=== PATIENT | female | born 1955 | race Caucasian/White ===

== ENCOUNTER 2017-02-04 03:24 | Inpatient (IN) | payer SELFPAY ==
[2017-02-04] VITALS (8 sets, daily range): BP systolic 84–144; BP diastolic 51–74
[~2017-02-04] VITALS: Ht 167.6 cm; Wt 71.8 kg
[2017-02-04] MEDS ORDERED: FUROSEMIDE 40MG/4ML VIAL IVP ONE (03:45)
[2017-02-04 03:59] LABS: BASOPHILS % 0.4 % (0.0-2.0); EOSINOPHILS % 2.3 % (0.0-5.0); HEMATOCRIT. 37.6 % (36.0-48.0); HEMOGLOBIN. 12.2 g/dL (12.0-16.0); LYMPHOCYTES % 32.6 % (20.0-50.0); MEAN CORPUSCULAR HEMOGLOBIN 30.2 pg (28.0-32.0); MEAN CORPUSCULAR VOLUME 93.1 fL (81.0-99.0); MEAN PLATELET VOLUME 10.2 fl (7.4-10.4); MONOCYTES % 4.4 % (2.0-8.0); NEUTROPHILS % 60.3 % (40.0-76.0); PLATELET 280 x1000/uL (130-400); RED BLOOD CELL COUNT 4.04 mill/uL (4.2-5.4); RED CELL DISTRIBUTION WIDTH 14.4 % (11.6-14.6)
[2017-02-04 04:03] LABS: PARTIAL THROMBOPLASTIN TIME 24.1 sec (23.4-31.0); PROTHROMBIN TIME 10.5 sec (9.4-11.6)
[2017-02-04 04:11] LABS: CARBON DIOXIDE 20 mEq/L (21-32); CHLORIDE 98 mEq/L (98-107); TROPONIN I 0.04 ng/mL (0.00-0.04)
[2017-02-04] MEDS ORDERED: LEVOFLOXACIN 500MG PREMIX 100 ML IV NR (05:00)
[2017-02-04] MEDS ORDERED: CEFTRIAXONE 1 G PREMIX 50 ML IV NR (05:00)
[2017-02-04] MEDS ORDERED: FURO40TA5 PO (05:09)
[2017-02-04] MEDS ORDERED: SIMV20TA6 PO (05:09)
[2017-02-04] MEDS ORDERED: METO50TA5 PO (05:10)
[2017-02-04] MEDS ORDERED: AMI2 PO (05:11)
[2017-02-04] MEDS ORDERED: ASPI-864 PO (05:11)
[2017-02-04] MEDS ORDERED: PANT40TA4 PO (05:13)
[2017-02-04] MEDS ORDERED: CLOP75TA33 PO (05:13)
[2017-02-04 06:55] LABS: BG BASE EXCESS -2.6 mmol/L (-2.0-2.0); BG BILEVEL POS AIRWAY PRESSURE 18/5; BG CARBOXYHEMOGLOBIN 0.2 % (0.5-1.5); BG DEOXYHEMOGLOBIN 0.4 % (0.0-5.0); BG FRACTION INSPIRED OXYGEN 100; BG HCO3 ACT 20.8 mmol/L (22.0-26.0); BG METHEMOGLOBIN 0.3 % (0.0-1.5); BG OXYGEN SATURATION 99.6 % (92.0-98.5); BG OXYHEMOGLOBIN 99.1 % (94.0-97.0); BG PCO2 31.8 mmHg (35.0-45.0); BG PH 7.433 (7.350-7.450); BG PO2 308.3 mmHg (75.0-100.0); BG SAMPLE SITE RIGHT BRACHIAL; BG TOTAL HEMOGLOBIN 12.9 g/dL (12.0-18.0); BG VENT MODE MASK - BIPAP; BG VENT RATE 18 set
[2017-02-04] MEDS: CLOPIDOGREL 75MG TABLET PO SCH (08:51)
[2017-02-04] MEDS: METOPROLOL TARTRATE 50MG TABLET PO SCH ×2 (08:51→21:31)
[2017-02-04] MEDS: PANTOPRAZOLE 40MG DR TABLET PO SCH (08:51)
[2017-02-04] MEDS: ASPIRIN 81MG EC TABLET PO SCH (08:52)
[2017-02-04] MEDS: FUROSEMIDE 40MG/4ML VIAL IVP SCH (08:52)
[2017-02-04] MEDS: AMIODARONE HCL 200 MG TABLET PO SCH (08:52)
[2017-02-04] MEDS: AMLODIPINE 5MG TABLET PO SCH (10:15)
[2017-02-04] MEDS ORDERED: FUROSEMIDE 40MG/4ML VIAL IVP SCH (10:15)
[2017-02-04] MEDS: AZITHROMYCIN 500 MG in DEXT 5% WATER 250 ML IV SCH (10:25)
[2017-02-04] MEDS: POTASSIUM CHLORIDE 20MEQ TABLET SR PO SCH (11:35)
[2017-02-04] MEDS ORDERED: METF100P3 MC (14:27)
[2017-02-04] MEDS ORDERED: GLIM4TAB2 PO (14:27)
[2017-02-04 16:01] LABS: CREATINE KINASE MB FRACTION 1.2 ng/mL (0.5-3.6); TROPONIN I 0.06 ng/mL (0.00-0.04)
[2017-02-04] MEDS ORDERED: DEXTROSE 50% WATER 50ML SYRINGE IV PRN (18:45)
[2017-02-04] MEDS: BLOOD SUGAR DIAGNOSTIC STRIP TEST SCH (21:31)
[2017-02-04] MEDS: ATORVASTATIN CALCIUM 20MG TABLET PO SCH (21:31)
[2017-02-04] MEDS: INSULIN LISPRO 100 UNITS/ML SUBCUT SCH (21:34)
[2017-02-04 23:46] LABS: CREATINE KINASE MB FRACTION 1.1 ng/mL (0.5-3.6); TROPONIN I 0.04 ng/mL (0.00-0.04)
[2017-02-05] VITALS (12 sets, daily range): BP systolic 95–147; BP diastolic 48–70
[2017-02-05] MEDS: PANTOPRAZOLE 40MG DR TABLET PO SCH (06:34)
[2017-02-05 06:47] LABS: BASOPHILS % 0.7 % (0.0-2.0); EOSINOPHILS % 3.5 % (0.0-5.0); HEMOGLOBIN. 10.7 g/dL (12.0-16.0); LYMPHOCYTES % 24.3 % (20.0-50.0); MEAN CORPUSCULAR HEMOGLOBIN 30.1 pg (28.0-32.0); MEAN CORPUSCULAR VOLUME 90.1 fL (81.0-99.0); MEAN PLATELET VOLUME 9.8 fl (7.4-10.4); MONOCYTES % 7.2 % (2.0-8.0); NEUTROPHILS % 64.3 % (40.0-76.0); PLATELET 216 x1000/uL (130-400); RED BLOOD CELL COUNT 3.55 mill/uL (4.2-5.4); RED CELL DISTRIBUTION WIDTH 14.2 % (11.6-14.6)
[2017-02-05 07:05] LABS: CHLORIDE 100 mEq/L (98-107)
[2017-02-05 07:14] LABS: CARBON DIOXIDE 27 mEq/L (21-32); HDL CHOLESTEROL 50 mg/dL (40-59); LDL CHOLESTEROL 116 mg/dL (5-100)
[2017-02-05] MEDS: INSULIN LISPRO 100 UNITS/ML SUBCUT SCH ×4 (08:00→21:27)
[2017-02-05] MEDS: BLOOD SUGAR DIAGNOSTIC STRIP TEST SCH ×4 (08:20→21:25)
[2017-02-05] MEDS: FUROSEMIDE 40MG/4ML VIAL IVP SCH (08:50)
[2017-02-05] MEDS: AZITHROMYCIN 500 MG in DEXT 5% WATER 250 ML IV SCH (08:50)
[2017-02-05] MEDS: POTASSIUM CHLORIDE 20MEQ TABLET SR PO SCH (08:50)
[2017-02-05] MEDS: AMLODIPINE 5MG TABLET PO SCH (08:51)
[2017-02-05] MEDS: ASPIRIN 81MG EC TABLET PO SCH (08:51)
[2017-02-05] MEDS: CLOPIDOGREL 75MG TABLET PO SCH (08:51)
[2017-02-05] MEDS: AMIODARONE HCL 200 MG TABLET PO SCH (08:52)
[2017-02-05] MEDS: METOPROLOL TARTRATE 50MG TABLET PO SCH (08:52)
[2017-02-05] MEDS ORDERED: CEFTRIAXONE 1,000 MG in DEXTROSE 5% WATER 25 ML IV SCH (09:00)
[2017-02-05] MEDS ORDERED: CEFTRIAXONE 1 G PREMIX 50 ML IV SCH (09:00)
[2017-02-05] MEDS ORDERED: AMIODARONE HCL 200 MG TABLET PO SCH (15:15)
[2017-02-05] MEDS ORDERED: GLIMEPIRIDE 4MG TABLET PO SCH (15:45)
[2017-02-05] MEDS: METFORMIN HCL 500MG TABLET PO SCH (17:57)
[2017-02-05] MEDS ORDERED: ATORVASTATIN CALCIUM 20MG TABLET PO SCH (21:00)
[2017-02-05] MEDS: ATORVASTATIN CALCIUM 20MG TABLET PO SCH (21:25)
[2017-02-06] VITALS (7 sets, daily range): BP systolic 106–130; BP diastolic 54–71
[2017-02-06] MEDS: PANTOPRAZOLE 40MG DR TABLET PO SCH (06:32)
[2017-02-06 07:17] LABS: BASOPHILS % 0.9 % (0.0-2.0); EOSINOPHILS % 6.5 % (0.0-5.0); HEMATOCRIT. 32.8 % (36.0-48.0); HEMOGLOBIN. 11.1 g/dL (12.0-16.0); MEAN CORPUSCULAR HEMOGLOBIN 30.6 pg (28.0-32.0); MEAN CORPUSCULAR VOLUME 89.9 fL (81.0-99.0); MEAN PLATELET VOLUME 10.2 fl (7.4-10.4); MONOCYTES % 7.4 % (2.0-8.0); NEUTROPHILS % 60.2 % (40.0-76.0); PLATELET 216 x1000/uL (130-400); RED BLOOD CELL COUNT 3.65 mill/uL (4.2-5.4); RED CELL DISTRIBUTION WIDTH 13.7 % (11.6-14.6)
[2017-02-06 07:25] LABS: CARBON DIOXIDE 26 mEq/L (21-32); CHLORIDE 98 mEq/L (98-107)
[2017-02-06] MEDS: BLOOD SUGAR DIAGNOSTIC STRIP TEST SCH (07:57)
[2017-02-06] MEDS: INSULIN LISPRO 100 UNITS/ML SUBCUT SCH (08:00)
[2017-02-06] MEDS: METFORMIN HCL 500MG TABLET PO SCH (08:57)
[2017-02-06] MEDS: ASPIRIN 81MG EC TABLET PO SCH (08:58)
[2017-02-06] MEDS: AMLODIPINE 5MG TABLET PO SCH (08:58)
[2017-02-06] MEDS: CLOPIDOGREL 75MG TABLET PO SCH (08:59)
[2017-02-06] MEDS: AMIODARONE HCL 200 MG TABLET PO SCH (08:59)
[2017-02-06] MEDS: POTASSIUM CHLORIDE 20MEQ TABLET SR PO SCH (08:59)
[2017-02-06] MEDS ORDERED: CLOPIDOGREL 75MG TABLET PO SCH (09:00)
[2017-02-06] MEDS ORDERED: PANTOPRAZOLE 40MG DR TABLET PO SCH (09:00)
[2017-02-06] MEDS ORDERED: ASPIRIN 81MG EC TABLET PO SCH (09:00)
[2017-02-06] MEDS ORDERED: METOPROLOL TARTRATE 25MG TABLET PO SCH (09:00)
[2017-02-06] MEDS ORDERED: FUROSEMIDE 40MG TABLET PO SCH (09:00)
== END 2017-02-06 11:55 | disposition home or self-care (01) | DRG 133 ==
LOC: ER 03:28 → 5EST 04:52 → EDBEDREQ 04:55 → ENRESERV 06:55
PROVIDERS: ADMIT Internal Medicine Critical Care Medicine; ATTEND Internal Medicine Critical Care Medicine
PROC: 5A09457 Assistance with Respiratory Ventilation, 24-96 Consecutive Hours, Continuous Positive Airway Pressure (ICD-10-PCS; principal; 2017-02-04)
DX: J96.01 Acute respiratory failure with hypoxia (principal); I50.23 Acute on chronic systolic (congestive) heart failure; J18.9 Pneumonia, unspecified organism; I11.0 Hypertensive heart disease with heart failure; I48.0 Paroxysmal atrial fibrillation; Z95.1 Presence of aortocoronary bypass graft; E11.9 Type 2 diabetes mellitus without complications; Z79.84 Long term (current) use of oral hypoglycemic drugs; I25.10 Atherosclerotic heart disease of native coronary artery without angina pectoris; Z79.82 Long term (current) use of aspirin; Z79.899 Other long term (current) drug therapy
CPT/HCPCS: 36415; 36600; 71010; 80048; 80053; 80061; 82375; 82553; 82805; 82962; 83036; 83690; 83880; 84484; 85025; 85610; 85730; 87040; 93005; 93306; 93970; 94660; 96365; 96366; 96375; 97162; 99291; J0456; J0696; J1815; J1940; J1956; J7050; J7060; A4315